=== PATIENT | female | born 1945 | race Caucasian/White ===

== ENCOUNTER 2016-11-18 14:30 | Outpatient (RCR) | payer MEDICARE ==
--- NOTE | 2016-10-14 11:48 | PT/OT/ST INITIAL EVALUATION ---
Department of Health and Human Services Form Approved [facility] Care Financing Administration OMB No. [id number] PLAN OF CARE/ASSESSMENT FOR OUTPATIENT REHABILITATION (Complete for Initial Claims Only) 1. LAST NAME Rashid FIRST NAME Solo Martell 2. ACC # [id number] 3. [facility] [id number] 4. PROVIDER NO. [id number] 5. TYPE: X PT 6. PRIOR HOSPITALIZATION After her right total knee replacement 7. PRIMARY DX Degenerative disk disease, right total knee arthroplasty 8. SECONDARY DX Right knee pain, right knee stiffness, difficulty walking and weakness 9. ONSET DATE Surgery 10/05/2016 10. REFERRAL DATE 10/07/2016 11. SOC. DATE 10/10/2016 9:08 a.m. to 10:08 a.m. 12. REFERRING PHYSICIAN Dr. Carlos Eduardo Ray 13. CHARGES PT evaluation 53119, moderate complexity. Therapeutic exercise 28070 , 2 units Vasopneumatic device 64604, 1 unit 14. G CODES Lower extremity functional index rates the patient as [id number] 96.3% limited and the goal is [id number]-OX 0% limited in order to be able to do light housework and ambulate without deviation. 15. PRIOR LEVEL OF FUNCTION; PERTINENT HISTORY (Prior therapy results, reason for referral.) S: Prior to therapy the patient consented to today's evaluation and treatment. The patient is a 71-year-old female referred to physical therapy by Dr. Carlos Eduardo Ray to address functional limitations secondary to degenerative disk disease and right total knee arthroplasty. Mechanism of injury: The patient reports there was no specific injury. The right knee began hurting several months ago. She currently has some twinges in her left knee. Primary complaint: The patient reports that she feels like she is going to fall and right knee pain. Occupational and social history: The patient is retired. Functional performance/Prior level of function: The patient has had right knee pain for several months and is unable to be as active as she would like to be. The patient rates the current pain level as 8/10 up to 10/10, at lowest 6/10 and describes the pain as a burning and throbbing pain. Obstacles to delivery of care: The patient has scoliosis and has had 5 back surgeries. She states she needs a 6th surgery and she has a history of blood clots. Aggravating factors include everything. Relieving factors: pain medication. Diagnostic testing: None noted. Past medical history includes scoliosis, osteoarthritis, blood clots off and on since 1974. The patient has one kidney, hypertension controlled by medication, low thyroid, allergies, depression and sees a load tester once a year due to a quadruple bypass. Past surgical history includes have 5 back surgeries with hardware placement. The patient states she needs a 6th back surgery. Also quadruple bypass and sees the load tester yearly. Right total knee arthroplasty, bilateral carpal tunnel repair, and hysterectomy. Current medications: Include Eliquis, Percocet, Flexeril p.r.n., medication for nerve pain p.r.n., for which she cannot remember the name of. Leisure activities: None due to being limited by pain from back and right knee. Activity level: Listed as low. Health rating: Overall health rating is listed as fair. The patient's goal for physical therapy includes walking normal and not having pain. 16. INITIAL ASSESSMENT/SAFETY PRECAUTIONS/MEDICAL COMPLICATIONS (Level of function at start of care. Be specific, use objective measures, list problems.) O: APPEARANCE, OBSERVATION AND GAIT: The patient presents to physical therapy with her . The patient is ambulating with a front-wheeled walker. The patient has 2 steps into the home with 1 railing. No steps inside the house that she has to do. The patient does not have an Aquacel bandage on. She states that it was taken off in the hospital and was not replaced with another Aquacel bandage and was given instructions to change every other day. They have limited bandaging, so it was not removed today, however, upon questioning, the patient and state there is no significant redness, oozing or irritation of the surgical site and she has all. The patient is wearing compression stocking on the right lower extremity, which is bunched up on the proximal thigh and the patient was educated to try to smooth that out so it doesn't roll up and cause more swelling. The patient was also educated in elevating the right lower extremity, keeping her knee extended and elevating her knee above her heart to help with swelling, as well as icing. PALPATION: States there is some tenderness at her right foot. None noted significantly at the right knee. SPECIAL TESTS: Negative bilateral Homans. RANGE OF MOTION/FLEXIBILITY: Active range of motion of the left knee flexion 122 degrees, extension 0 degrees. Right knee flexion 57 degrees, extension lacking 6 degrees. STRENGTH: Manual muscle testing upon observation of the right knee 2/. TODAY'S TREATMENT: Included the initial PT evaluation followed by therapeutic exercise with home exercise program instruction and handouts followed by vasopneumatic device. 17. INITIAL POC: (Specify procedures, modalities, short and nursing home goals) A: The patient presents with the diagnosis of degenerative disk disease and right total knee arthroplasty. The patient is listed as a moderate complexity evaluation code due to complicating factors of having scoliosis with multiple back surgeries with a need for another back surgery and history of blood clots through the years. Active range of motion and manual muscle testing are all limited, as well as the lower extremity functional scale and back pain that tends to be evolving. The patient would benefit from physical therapy due to needing to improve strengthening for stability of the right knee for ambulation and return to activities around her home safely without an assistive device, as well as improving active range of motion for ease of getting in and out of bed and in and out of the car. PROGNOSIS: The patient has a good prognosis for increased overall functional capacity with regular therapy attendance and compliance with prescribed home exercise program. CONTRAINDICATIONS, PRECAUTIONS AND OBSTACLES TO TREATMENT: The patient has had 5 back surgeries for scoliosis and is in need of a 6th with a history of blood clots. GOALS: 1. The patient was rated by the lower extremity functional scale as [id number]-[id number] 96.3% limited and the goal is A1144-BS 0% limited in order to be able to do light housework and ambulate without deviation. 2. The patient is to have a decrease in pain of the right knee to less than or equal to 2/10 in 6 weeks in order to do light housework and light meal preparation with minimal deviation. 3. The patient is to have an increase in active range of motion of the right knee to 0 to 120 degrees for return to ambulation with minimal deviation for approximately 10 minutes. 4. The patient is to have an increase in manual muscle testing of the right knee to 4+/5 in 6 weeks in order to ascend and descend 8 steps with minimal deviation. 5. The patient is to be independent with a progressive home exercise program. The prognosis and goals were discussed with the patient, as well as the expected outcomes and possible risks. The patient agreed to undergo PT evaluation and further treatment. P: Treatment to include modalities for pain and inflammation, manual therapy interventions, therapeutic exercise, active and passive range of motion, gait training, balance training, neuro reeducation and patient education and prescription of progressive home exercise program as tolerable. 18. FREQUENCY 2 to 3 times a week 19. DURATION 6 weeks 20. FUNCTIONAL LEVEL (End of claim period) 21. PHYSICIAN SIGNATURE ? ON FILE OR ENTER HERE: 22. DATE: I certify the need for these services furnished under this plan of care and if for partial hospitalization. 23. CERTIFICATION FROM THROUGH FORM [id number]
[~2016-11-18 14:30] MED LIST: ALPR.25T PO; AMLO10TA82 PO; APIX5TAB PO; ASPI-586 PO; CALC-185 PO; CALC-250 PO; CEPH500C PO; CHOL100045 PO; CPR500T PO; CYCL-265 PO; CYCL10TA45 PO; DOCU-243 PO; DOXE50CA21 PO; DOXE50CA3 PO; DULO30CA PO; DULO60CA58 PO; ENXP60I.6 SC; ESCI10TA49 PO; ESCI20TA39 PO; EZET1TAB16 PO; EZET1TAB26 PO; FLUT16SP; FURO40TA4 PO; INDA1.25 PO; K-ROCEP1PB IV; LEVO500T16 PO; LEVO50TA PO; LEVO50TA6 PO; LINA290C PO; LISI-592 PO; LISI1TAB8 PO; LVT.05T PO; METO100T6 PO; MGX400T PO; NF-LUBIP24 PO; NIAC500T2 PO; NITR100C10 PO; NITR100C3 PO; OMEG-58 PO; OMG1KC PO; OXC10TCR PO; OXYC-109 PO; OXYC10TA74 PO; OXYC1TAB7 PO; OXYC1TAB8 PO; OXYC1TAB87 PO; OXYC1TAB95 PO; PRAM0.252 PO; PRAM0.257 PO; PREG100C2 PO; PREG50C PO; RIZA10TA25 PO; WARF3TAB6 PO; WARF4TAB PO; WARF4TAB7 PO
== END 2016-12-12 10:19 | disposition home or self-care (01) ==
LOC: PT 14:30
PROVIDERS: ATTEND Orthopaedic Surgery Adult Reconstructive Orthopaedic Surgery
DX: M17.11 Unilateral primary osteoarthritis, right knee (principal)
CPT/HCPCS: 97016; 97110; 97112; 97140; 97162; G8978; G8979

== ENCOUNTER → 2016-11-22 | Outpatient (CLI) | payer MEDICARE | LOC: RAD 11:19 | PROVIDERS: ATTEND Neurological Surgery | DX: D32.0 Benign neoplasm of cerebral meninges (principal) | CPT/HCPCS: 36415; 70553; 82565; 84520; A9579 ==